=== PATIENT | male | born 1935 | race Caucasian/White ===

== ENCOUNTER 2018-03-10 14:10 | Observation (INO) | payer OTHER, MEDICARE ==
--- NOTE | 2018-03-10 14:37 | EDPHY ---
H & P Time Seen by Provider: 03/10/18 14:36 HPI/ROS: CHIEF COMPLAINT: Chest discomfort HISTORY OF PRESENT ILLNESS: 82-year-old man was significant hypercholesterolemia presents with 3 days of intermittent left-sided chest discomfort. He 1st noticed it 3 nights ago as a"low-grade pain"which lasted half an hour and then he went back to sleep. He had the same thing happened to him 2 nights ago and then again last night. At 7:00 a.m. He awoke was asymptomatic but at 9:00 a.m. Today the symptoms came on again and were stronger. Associated with shortness of breath with walking. No radiation and no nausea or vomiting. Symptoms were moderate previously but are completely gone when I see him now. REVIEW OF SYSTEMS: Eye: no change in vision ENT: no sore throat Cardiac: HPI, had some racing heart rate last a month ago but nothing in the last 4 weeks. Pulmonary: no cough or SOB Abdomen: no vomiting, diarrhea, abdominal pain Musculoskeletal: No leg swelling Skin: no rash Neuro: no headache Constitutional: no fever : no urinary symptoms A comprehensive 10 point review of systems is otherwise negative aside from elements mentioned in the history of present illness. PAST MEDICAL HISTORY: Prostate cancer, chronic left facial droop Just spent the last 18 months living in [place] and [place] as they are thinking of retiring to another country. Social history: Here with his , nonsmoker General Appearance: Alert and conversant, cooperative. Eyes: No scleral icterus. ENT, Mouth: Normal mucous membranes. Respiratory: Normal respiratory effort, breath sounds equal, lungs are clear to auscultation. Cardiovascular: Regular rate and rhythm. Gastrointestinal: Abdomen is soft and non tender. Neurological: Alert, face with very slight left facial droop, normal motor and sensory in extremities. Skin: Warm and dry, no rashes. Musculoskeletal: No peripheral edema. No calf tenderness. Psychiatric: Not agitated. Emergency Department course/MDM: At least moderate suspicion for coronary disease with chest pain and exertional dyspnea an 82-year-old man with high cholesterol. Plan for aspirin, chest x- ray and D-dimer, hospitalist admission. 1606: CT angio discussed and consented, chest pain with recent travel and D- dimer 1.44. 1636: CT negative for PE per Leon, does have approximately calcification , discussed with Dr. Perez Ammon admit for cardiac risk stratification. Oral aspirin. Smoking Status: Never smoked Constitutional: Initial Vital Signs Temperature (C) 36.4 C 03/10/18 14:13 Heart Rate 53 L 03/10/18 14:13 Respiratory Rate 18 03/10/18 14:13 Blood Pressure 162/87 H 03/10/18 14:13 O2 Sat (%) 96 03/10/18 14:13 O2 Delivery Mode Room Air Allergies/Adverse Reactions: No Known Allergies Allergy (Verified 03/10/18 14:13) Home Medications: Medication Instructions Recorded NK [No Known Home Meds] 03/10/18 Medical Decision Making - Diagnostics EKG Interpretation: 12-lead EKG interpreted by me; official reading is in computer system. My interpretation is sinus bradycardia rate 45 with no ischemic changes. Imaging Results: Imaging Impressions Chest X-Ray 03/10/18 15:00 Impression: Nothing acute identified. Suspect COPD. Chest/Thorax CTA 03/10/18 15:49 Impression: No pulmonary embolic disease. 2. Proximal LAD CAD. Results called to Dr. Milton Castro at 4:34 PM. General information for patients regarding this examination can be found at [email or web address]. If you have questions or comments about this report, please contact me at (hospital) or [phone] (cell). Differential Diagnosis: Differential diagnosis considered for chest pain including but not limited to myocardial ischemia, aortic dissection, pericarditis, pulmonary embolus, chest wall pain, pleural inflammation and pulmonary infectious causes. - Data Points Laboratory Results: Laboratory Results 03/10/18 14:30 03/10/18 14:30 03/10/18 03/10/18 03/10/18 15:46 14:30 14:30 WBC RBC Hgb Hct MCV MCH MCHC RDW Plt Count MPV Neut % (Auto) Lymph % (Auto) [place] % (Auto) Eos % (Auto) Baso % (Auto) Nucleat RBC Rel Count Absolute Neuts (auto) Absolute Lymphs (auto) Absolute Monos (auto) Absolute Eos (auto) Absolute Basos (auto) Absolute Nucleated RBC Immature Gran % Immature Gran # D-Dimer 1.44 ug/mLFEU H ug/mLFEU (0.00-0.50) Sodium 139 mEq/L mEq/L (135-145) Potassium 4.1 mEq/L mEq/L (3.3-5.0) Chloride 106 mEq/L mEq/L (97-110) Carbon Dioxide 25 mEq/l mEq/l (22-31) Anion Gap 8 mEq/L mEq/L (8-16) BUN 19 mg/dL mg/dL (7-23) Creatinine 1.0 mg/dL mg/dL (0.7-1.3) Estimated GFR > 60 Glucose 93 mg/dL mg/dL (70-100) Calcium 9.1 mg/dL mg/dL (8.5-10.4) POC Troponin I 0.01 ng/mL ng/mL (0.00-0.08) 03/10/18 14:30 WBC 6.08 10^3/uL 10^3/uL (3.80-9.50) RBC 4.99 10^6/uL 10^6/uL (4.40-6.38) Hgb 14.9 g/dL g/dL (13.7-17.5) Hct 43.6 % % (40.0-51.0) MCV 87.4 fL fL (81.5-99.8) MCH 29.9 pg pg (27.9-34.1) MCHC 34.2 g/dL g/dL (32.4-36.7) RDW 13.6 % % (11.5-15.2) Plt Count 204 10^3/uL 10^3/uL (150-400) MPV 10.0 fL fL (8.7-11.7) Neut % (Auto) 68.8 % % (39.3-74.2) Lymph % (Auto) 18.9 % % (15.0-45.0) [place] % (Auto) 8.6 % % (4.5-13.0) Eos % (Auto) 2.6 % % (0.6-7.6) Baso % (Auto) 0.8 % % (0.3-1.7) Nucleat RBC Rel Count 0.0 % % (0.0-0.2) Absolute Neuts (auto) 4.18 10^3/uL 10^3/uL (1.70-6.50) Absolute Lymphs (auto) 1.15 10^3/uL 10^3/uL (1.00-3.00) Absolute Monos (auto) 0.52 10^3/uL 10^3/uL (0.30-0.80) Absolute Eos (auto) 0.16 10^3/uL 10^3/uL (0.03-0.40) Absolute Basos (auto) 0.05 10^3/uL 10^3/uL (0.02-0.10) Absolute Nucleated RBC 0.00 10^3/uL 10^3/uL (0-0.01) Immature Gran % 0.3 % % (0.0-1.1) Immature Gran # 0.02 10^3/uL 10^3/uL (0.00-0.10) D-Dimer Sodium Potassium Chloride Carbon Dioxide Anion Gap BUN Creatinine Estimated GFR Glucose Calcium POC Troponin I Medications Given: Discontinued Medications Aspirin (Aspirin) 324 mg PO EDNOW ONE Stop: 03/10/18 15:00 Last Admin: 03/10/18 15:18 Dose: 324 mg Point of Care Test Results: Chemistry 03/10/18 15:46 POC Troponin I 0.01 ng/mL ng/mL (0.00-0.08) Departure - Departure Disposition: [facility] Inpatient Acute Clinical Impression: Chest pain Qualifiers: Chest pain type: unspecified Qualified Code(s): R07.9 - Chest pain, unspecified Condition: Good
[2018-03-10] MEDS ORDERED: ASPIRIN 81 MG CHEWABLE TAB PO ONE (14:59)
--- NOTE | 2018-03-10 15:04 | CPEKG ---
Test Reason : OPEN Blood Pressure : / mmHG Vent. Rate : 045 BPM Atrial Rate : 044 BPM P-R Int : 143 ms QRS Dur : 102 ms QT Int : 484 ms P-R-T Axes : 049 006 050 degrees QTc Int : 419 ms Sinus bradycardia Confirmed by Milton Castro ([id number]) on 03/10/2018 3:03:55 PM Referred By: Confirmed By:Milton Castro
[2018-03-10 15:17] LABS: PLATELET COUNT 204 10^3/uL (150-400)
[2018-03-10] MEDS ORDERED: IOPAMIDOL (ISOVUE 370) 100 ML BTL IV ONE (16:00)
[2018-03-10] MEDS ORDERED: ACETAMINOPHEN 325 MG TAB PO PRN (18:14)
[2018-03-10] MEDS ORDERED: ONDANSETRON DISINTEGRATING 4 MG TAB PO PRN (18:14)
[2018-03-10] MEDS ORDERED: ONDANSETRON 4 MG/2 ML VIAL IVP PRN (18:14)
--- NOTE | 2018-03-10 19:04 | GHP ---
DATE OF ADMISSION: 03/10/2018 HISTORY OF PRESENT ILLNESS: The patient is a pleasant 82-year-old gentleman with a history of 20 yea rs of untreated hyperlipidemia, who presents with several days of chest pressure. It sounds like occ urring nocturnally. It is in his chest. It does not radiate. It is not associated with nausea, ramsey phoresis, or shortness of breath. It resolves on its own. He is a fit clarisa. He is an avid walker, a nd he noticed that he is having a little bit of exertional intolerance lately, although it is not chaz ar that he is actually having exertional pain. He also describes a story of over in the last say 6 or 7 months he has had a couple of episodes where he woke up with palpitations and rapid heart rate that resolved on its own. He did not seek care. He notes he has been traveling somewhat frequently, and he has been experiencing a bit of lower extre mity edema. Regarding cardiac risk factors, his brother has a history of a stent and hyperlipidemia at a similar age as he is now. He has been a non-smoker for most of his life. He does not have high blood pressu re or diabetes, and he does have hyperlipidemia. REVIEW OF SYSTEMS: A complete 10-point review of systems conducted; negative except as noted in the HPI. PAST MEDICAL HISTORY: Inguinal hernia. ALLERGIES: No known drug allergies. HOME MEDICATIONS: None. SOCIAL HISTORY: [id number] alcohol. 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 Lots of travel. FAMILY HISTORY: As in the HPI. PHYSICAL EXAMINATION: VITAL SIGNS: Temp 36.4; blood pressure 162/87, now 134/74; pulse 53; breathin g 18 times a minute; 96% on room air. GENERAL: No acute distress. Sclerae anicteric. Oropharynx c lear. Mucous membranes moist. NECK: Supple. No lymphadenopathy or JVD. LUNGS: Clear to ausculta tion bilaterally. HEART: S1, S2. ABDOMEN: Soft, nontender, nondistended. LOWER EXTREMITIES: Wit hout edema. Calves are nontender. SKIN: Without rash. NEUROLOGIC: Nonfocal. DIAGNOSTIC STUDIES: EKG interpreted by me shows sinus bradycardia at 45 with normal axis and interva ls with no ST or T-wave changes. Chest x-ray interpreted by me shows no acute cardiopulmonary diseas e. CTA of the chest shows proximal LAD calcification, no PE. LABORATORY STUDIES: White count 6, hematocrit 44, platelets are 204,000. D-dimer is elevated at 1.4 . Sodium 139, potassium 4.1, chloride 106, bicarb 25, BUN 19, creatinine 1.0. Point of care troponi n is 0.01. I have discussed the case with Dr. Milton Castro. ASSESSMENT/PLAN: An 82-year-old gentleman who presents with likely exertional angina. 1. Angina. This is a concerning symptom, although he has a negative initial evaluation. Given his normal electrocardiogram, I think it is reasonable to do an exercise treadmill test in the morning. I have asked Cardiology to see him as well. 2. Hyperlipidemia. Check lipid panel in the morning. 3. Nocturnal palpitations. This is concerning for possible atrial fibrillation. I will go ahead an d follow him on telemetry. I think we can hold off on echocardiogram. 4. Hypertension, present on admission. We will follow. DISPOSITION: Observation status. /[id number]/MODL
[2018-03-11] MEDS ORDERED: ASPIRIN 81 MG CHEWABLE TAB PO SCH (09:00)
--- NOTE | 2018-03-11 11:52 | ASMTCASEMG ---
Living Arrangements What is your living Answers: With Spouse arrangement? Who do you live with? Type Of Residence What kind of residence do Answers: House you live in? Discharge Plan Comments Coordination Status Comments Notes: Pt is an active 82 y/o man admitted for chest pain. Pt will have a lexiscan stress test today. If the stress stress is negative pt will d/c without any needs. CM available for changes. Plan: Independent Date Signed: 03/11/2018 11:51 AM Electronically Signed By:BOWEN Aldana
--- NOTE | 2018-03-11 12:10 | CPEKG ---
Test Reason : OPEN Blood Pressure : / mmHG Vent. Rate : 039 BPM Atrial Rate : 039 BPM P-R Int : 136 ms QRS Dur : 097 ms QT Int : 510 ms P-R-T Axes : 022 040 062 degrees QTc Int : 411 ms significant sinus bradycardia Confirmed by Albin Atkins ([id number]) on 03/11/2018 12:09:30 PM Referred By: Confirmed By:Albin Atkins
[2018-03-11] MEDS ORDERED: REGADENOSON 0.4 MG/5 ML SYR IVP ONE (13:21)
--- NOTE | 2018-03-11 14:08 | CPR ---
PROCEDURE: Lexiscan Injection of Lexiscan MPI Study. SUPERVISING TRANSONIC ENGINEER: Dr. Parth Coleman. INDICATION FOR PROCEDURE: Chest pain, unable to run on treadmill. PRE: After obtaining informed consent, ensuring patient's n.p.o. status of caffeine for greater than 12 hours, patient was placed on electrocardiogram. Initial EKG shows sinus bradycardia with ventric ular rate at 42 beats per minute. Normal axis with no significant ST or T-wave abnormalities. The p atient reports no chest pain, pressure, or symptoms suggesting of ischemia. STRESS: Patient was given Lexiscan slow IV push, followed by nuclear isotope. Following injection, it was noted that his heart rate did jump up to around 87 beats per minute, remaining sinus rhythm wi th no arrhythmias, no significant ST changes. Within 5 minutes post-injection, patient did report so me mild stomach cramping and flushing sensation, but no chest pressure or pain. Within 5 minutes, milton hernandez reported all symptoms subsided, electrocardiogram remains the same unchanged, blood pressure of 132/78, heart rate of 97. IMPRESSION: 82-year-old male being evaluated for possible cardiac ischemia with noted episode of eelanor st pressure. Unable to run on a treadmill, Lexiscan MPI study done with no significant EKG changes, except rate. Vital signs are stable. He is asymptomatic at this time. He will finish poststress im aging in nuclear medicine. /[id number]/MODL
--- NOTE | 2018-03-11 14:54 | HOSPPROG ---
Hospitalist Progress Note Assessment/Plan: 82 yo M with PMH of HLD presenting with chest pain # chest pain: has had several episodes of chest pain and palpitations over the last several months, mostly waking him from sleep. He is currently cp free. CTA personally reviewed showing no PE or PNA, ECG personally reviewed notable for sinus bradycardia. Lexiscan performed today and pending but if negative will dc home to f/u with PCP and establish care with cardiology. # HLD: with LDL of 157 and patient not on meds previously, at this time will hold off on starting medications and have patient f/u with PCP # nocturnal palpitations: has occurred twice in the last several months, no significant events noted on tele, will have patient f/u with cardiology and consider holter/event monitoring # observation status Patient new to my care. Old records reviewed and summarized as above. Subjective: no significant overnight events, patient currently feeling better without pain Objective: Vital Signs Temp Pulse Resp BP Pulse Ox 36.5 C 48 L 16 131/80 H 95 03/11/18 11:22 03/11/18 11:22 03/11/18 11:22 03/11/18 11:22 03/11/18 11:22 03/10/18 03/11/18 03/12/18 05:59 05:59 05:59 Intake Total 300 Balance 300 awake alert anicteric op clear rrr no mrg cta b soft nt nd no cce warm dry well perfused oriented appropriate ICD10 Worksheet Patient Problems: Problems Problem Status Onset Chest pain Acute
[2018-03-11 16:17] VITALS: BP 143/76
== END 2018-03-11 17:49 | disposition home or self-care (01) ==
LOC: F2W 18:20
PROVIDERS: ADMIT Internal Medicine; ATTEND Internal Medicine
DX: R07.89 Other chest pain (principal); R00.2 Palpitations; E78.00 Pure hypercholesterolemia, unspecified; R29.810 Facial weakness; I10 Essential (primary) hypertension; Z85.46 Personal history of malignant neoplasm of prostate
CPT/HCPCS: 71046; 71275; 78452; 93005; 93017; 99285; A9500; G0378; J2785; Q9967; 84484-PO

== ENCOUNTER → 2018-03-16 | Outpatient (CLI) | payer OTHER, MEDICARE | LOC: FIMAGING 09:10 | PROVIDERS: ATTEND Family Medicine | DX: M48.061 Spinal stenosis, lumbar region without neurogenic claudication (principal); M48.07 Spinal stenosis, lumbosacral region; M51.36 Other intervertebral disc degeneration, lumbar region; M46.97 Unspecified inflammatory spondylopathy, lumbosacral region ==

== ENCOUNTER → 2018-04-12 | Outpatient (CLI) | payer OTHER, MEDICARE | LOC: BHFA 09:15 | PROVIDERS: ATTEND Internal Medicine Cardiovascular Disease | DX: R07.9 Chest pain, unspecified (principal) ==

== ENCOUNTER 2018-04-22 11:57 | Observation (INO) | payer OTHER, MEDICARE ==
[2018-04-22] MEDS ORDERED: LR 1,000 ML IV ONE (12:42)
[2018-04-22] MEDS ORDERED: SURGIFLO MATRIX KIT WITH THROMBIN 8 ML TP ONE (14:43)
[2018-04-22] MEDS ORDERED: BUPIVACAINE/EPI 0.5% 30 ML SDV ONE (14:43)
[2018-04-22] MEDS ORDERED: VANCOMYCIN 1 GM VIAL ONE (14:43)
[2018-04-22] MEDS ORDERED: BACITRACIN 50,000 UNITS/10 ML SYR IRR ONE (14:44)
--- NOTE | 2018-04-22 14:47 | PDANEPAE ---
ANE Past Medical History - Cardiovascular History Hx Hypertension: No Hx Arrhythmias: No Hx Chest Pain: No Hx Coronary Artery / Peripheral Vascular Disease: No Hx CHF / Valvular Disease: No Hx Palpitations: Yes Cardiovascular History Comment: SINUS BRADYCARDIA. NOCTURNAL PALPITATIONS - Pulmonary History Hx COPD: No Hx Asthma/Reactive Airway Disease: No Hx Recent Upper Respiratory Infection: No Hx Oxygen in Use at Home: No Hx Sleep Apnea: No Sleep Apnea Screening Result - Last Documented: Negative - Neurologic History Hx Cerebrovascular Accident: No Hx Seizures: No Hx Dementia: No - Endocrine History Hx Diabetes: No Hypothyroid: No Hyperthyroid: No Obesity: no - Renal History Hx Renal Disorders: Yes Renal History Comment: HX OF STONES. UTI 01/2018. NOCTURIA/BPH - Liver History Hx Hepatic Disorders: No - Neurological & Psychiatric Hx Hx Neurological and Psychiatric Disorders: No - Cancer History Hx Cancer: Yes Cancer History Comment: PROSTATE CA BEING MONITORED - Congenital Disorder History Hx Congenital Disorders: No - GI History GERD: no Hx Gastrointestinal Disorders: No - Other Health History Other Health History: SPINAL STENOSIS. MADDISON LEG WEAKNESS RT BEING WEAKER. GLAUCOMA RT EYE - Chronic Pain History Chronic Pain: Yes (MADDISON LOWER LUMBAR AND LEG WEAKNESS) - Surgical History Prior Surgeries: MADDISON ING HERNIA. MADDISON CATARACT. TONSILLECTOMY. LITHOTRIPSY. CYSTO ANE Review of Systems Review of Systems: - Exercise capacity Exercise capacity: >=4 METS METS (RN): 4 METS ANE Patient History - Allergies Allergies/Adverse Reactions: No Known Allergies Allergy (Verified 03/10/18 14:13) - Home Medications Home Medications: Ascorbic Acid [Vitamin C 500 mg (*)] 500 mg PO DAILY 04/13/18 [Last Taken Unknown] acetaZOLAMIDE [Diamox Sequel 500mg] 500 mg PO BID 04/21/18 [Last Taken Unknown] - NPO status NPO Since - Solids (Date): 04/21/18 NPO Since - Solids (Time): 20:30 - Anes Hx Anes Hx: no prior problems - Smoking Hx Smoking Status: Former smoker Marijuana use: No - Alcohol Use Alcohol Use: Rarely - Family Anes Hx Family Anes Hx: neg - N/A ANE Labs/Vital Signs - Vital Signs Blood Pressure: 128/74 Heart Rate: 48 Respiratory Rate: 18 O2 Sat (%): 96 Height: 181.61 cm Weight: 79.379 kg ANE Physical Exam - Airway Neck exam: decreased ROM Mallampati Score: Class 3 Mouth exam: normal dental/mouth exam - Pulmonary Pulmonary: no respiratory distress, no rales or rhonchi, clear to auscultation - Cardiovascular Cardiovascular: no murmur, rub, or gallop, bradycardia - ASA Status ASA Status: II ANE Anesthesia Plan Anesthesia Plan: general endotracheal anesthesia Total IV Anesthesia: No
[2018-04-22] MEDS ORDERED: ceFAZolin 2 GM/DEXTROSE 100 ML IV ONE (15:18)
--- NOTE | 2018-04-22 15:20 | PDHPUP ---
History & Physical Update H&P update statement: This history and physical update is based on an assessment of the patient which was completed after admission or registration (within 24 hours), but prior to the surgery/procedure. H&P update: H&P reviewed & patient examined, no change in patient's condition since H&P completed
[2018-04-22] MEDS ORDERED: TRANEXAMIC ACID 1,000 MG in NS 100 ML IV ONE (15:26)
[2018-04-22] MEDS ORDERED: fentaNYL 100 MCG/2 ML INJ ONE ×2 (15:40→18:08)
[2018-04-22] MEDS ORDERED: REMIFENTANIL HCL 1 MG VIAL ONE (15:42)
[2018-04-22] MEDS ORDERED: PROPOFOL/EMULSION 500 MG/50 ML BOTTLE IV ONE (15:42)
[2018-04-22] MEDS ORDERED: ONDANSETRON 4 MG/2 ML VIAL ONE (15:43)
[2018-04-22] MEDS ORDERED: ROCURONIUM 50 MG/5 ML VIAL ONE (15:43)
[2018-04-22] MEDS ORDERED: LIDOCAINE 2% 2 ML INJ ONE (15:44)
[2018-04-22] MEDS ORDERED: DEXAMETHASONE 4 MG/ML VIAL ONE (15:44)
[2018-04-22] MEDS ORDERED: ePHEDrine SULFATE 25 MG/5 ML SYR ONE (16:13)
[2018-04-22] MEDS ORDERED: SUGAMMADEX SODIUM 200 MG/2 ML VIAL IVP ONE (16:32)
[2018-04-22] MEDS ORDERED: fentaNYL 100 MCG/2 ML INJ IVP PRN (16:52)
[2018-04-22] MEDS ORDERED: NALOXONE HCL 0.4 MG/ML INJ IVP PRN (16:52)
[2018-04-22] MEDS ORDERED: LR 500 ML IV PRN (16:52)
[2018-04-22] MEDS ORDERED: oxyCODONE IR 5 MG TAB PO PRN ×2 (16:52→18:25)
[2018-04-22] MEDS ORDERED: DIAZEPAM 5 MG/ML 1 ML SYR IVP PRN (16:52)
[2018-04-22] MEDS ORDERED: ONDANSETRON 4 MG/2 ML VIAL IVP PRN ×2 (16:52→18:25)
[2018-04-22] MEDS ORDERED: ACETAMINOPHEN 500 MG TAB PO PRN (16:52)
[2018-04-22] MEDS ORDERED: HYDROCODONE/APAP 5/325 TAB PO PRN (16:52)
[2018-04-22] MEDS ORDERED: PROMETHAZINE HCL 25 MG/ML INJ IVP PRN (16:52)
[2018-04-22] MEDS ORDERED: HYDROmorphONE/DILAUDID 2 MG/ML INJ IVP PRN (16:52)
[2018-04-22] MEDS ORDERED: PHENYLEPHRINE HCL 100 MCG/ML SYR IVP PRN (16:52)
[2018-04-22] MEDS ORDERED: KETOROLAC 30 MG/1 ML SDV ONE (17:36)
[2018-04-22] MEDS ORDERED: METHOCARBAMOL 750 MG TAB PO PRN (18:25)
[2018-04-22] MEDS ORDERED: POLYETHYLENE GLYCOL 3350 17 GM PKT PO PRN (18:25)
[2018-04-22] MEDS ORDERED: ONDANSETRON DISINTEGRATING 4 MG TAB PO PRN (18:25)
[2018-04-22] MEDS ORDERED: diphenhydrAMINE 25 MG CAP PO PRN (18:25)
[2018-04-22] MEDS ORDERED: MAGNESIUM HYDROXIDE 30 ML UDCUP PO PRN (18:25)
[2018-04-22] MEDS ORDERED: HYDROmorphONE/DILAUDID 1 MG/ML INJ IVP PRN (18:25)
[2018-04-22] MEDS ORDERED: LACTULOSE 20 GM/30 ML UDCUP PO PRN (18:25)
[2018-04-22] MEDS ORDERED: BISACODYL 10 MG SUPP PR PRN (18:25)
--- NOTE | 2018-04-22 18:34 | SUROPNOTE ---
[facility] Operative Report - Surgery Date: 04/22/18 Pre-operative Diagnosis: Lumbar Spinal Stenosis Post-operative Diagnosis: Same Procedure: L3-5 Open Lumbar Laminectomy and Decompression Use of intra-operative fluoroscopy Use of a surgical microscope Surgeon: Josafat Bishop MD Supply Aide: Miley Zuleta Anesthesia: General endotracheal anesthesia Findings: As expected lumbar spinal stenosis Estimated Blood Loss: 100mL Drains: Hemovac sewn to skin Specimens: None Complications: None Condition: Transferred to PACU in stable condition. Implants: None Indications: This patient was seen and examined by me and diagnosed with lumbar spinal stenosis. I have explained all options of treatment for the patient, and the patient has elected to proceed with operative management. I have explained all risks, benefits, and alternatives of the proposed procedure. The risks that we have discussed include , blindness, nerve damage, infection, dural tear, failure of surgery to alleviate pre-operative symptoms, and possible need for further operation. In addition to the aforementioned procedure, I discussed with the patient that other procedures may be indicated during the course of surgery that would be considered in the patients best interest. The patient expressed understanding of this. Pre-operative: The proposed incision site was marked in the pre-operative holding area by me. The patient was then taken to the operating room in stable condition. Following smooth induction of general anesthesia, the patient was positioned prone on a Reinaldo table in mild reverse Trendelenburg with all down surfaces well-padded. The patient was then prepped and draped in the usual sterile fashion. Pre- operative antibiotics were administered within one hour of the incision. A surgical timeout was performed, and all parties involved in the procedure were in agreement on the correct patient, location, and procedure to be performed. Approach: The proposed levels were identified using C-arm fluoroscopy and the skin was marked for the proposed incision. The skin was then incised sharply through the dermis. Electrocautery was used to dissect the subdermal fat layer down to fascia and to coagulate bleeding vessels. Secondary pause: Two Valentín clamps were then placed on the spinous processes at both ends of the dissection. A lateral radiograph to identify the associated anatomy, and a small piece of bone from the associated spinous processes was removed for identification. A secondary spinal pause was then performed, and the level was confirmed with all parties participating in the operation. Decompression: All paraspinal muscles were dissected sub-periostally from the spinous processes and laminae. The dissection was then carried out to include the extent of decompression that was determined before surgery, with care being taken to preserve all facet capsules. The lateral pars was identified for all levels to be included in the proposed decompression. Using a combination of rongeur, lennox, and Kerrison rongeurs, the spinous processes and laminae were removed at all levels to the subarticular lateral recess. Care was taken to leave a minimum of 8mm of bone from the lateral border of the pars at each decompressed level. The ligamentum flavum was resected at all levels. Additional care was taken to adequately decompress the lateral recess at all levels. At the cephalad and caudal vertebrae of the extent of the decompression , approximately 50% of the lamina was removed; at the remaining levels, a complete laminectomy was performed. At this time, a ball probe was used to probe all foraminae at the affected levels. Where necessary, a small Kerrison rongeur was used to decompress remaining bone and soft tissue so that all nerve roots would traverse freely through the foraminae. In total, the entire laminae of L4 and L5 were removed, the caudal half of L3 was removed. Closure: The surgical field was then copiously irrigated with sterile saline. Vancomycin powder was then applied to the surgical field. A small drain was placed deep to the fascia and brought out of the skin superior and laterally. The drain was then sewn to skin. #1 braided and absorbable interrupted sutures were used to repair the fascia. Then 2-0 monofilament interrupted sutures were used to repair the dermal layer, and a separate 3-0 monofilament suture was used to repair the subcutaneous layer in a running fashion. All sutures used were absorbable. Topical adhesive was then applied to the skin and allowed to dry. A sterile island dressing was applied over the surgical incision. A surgical count was performed before initiation of closure and following the procedure, and all were correct. I was present for all critical portions of the procedure. Neuromonitoring: SSEP, MEP and EMG were used throughout the case from incision until the beginning of closure. There were no significant changes throughout the case, and SSEP signals were at their pre-surgical baseline levels before surgical closure was initiated. Surgical microscope use: A surgical microscope was utilized throughout the decompressive portion of this case. This was deemed necessary for safe and accurate surgical decompression of affected nerve roots. speech language assistant: A director surgical was used throughout the case, and deemed necessary for safe neural retraction, hemostasis, and suction. Recovery: The patient was extubated uneventfully in the operating room. The patient was taken to the recovery room in stable condition. Sequential compression devices for VTE prophylaxis were applied to the patients lower extremities, and were ordered to be used while the patient was non-ambulatory. Chemical VTE prophylaxis was considered to be contraindicated for this patient because of the risk of bleeding near the epidural space. Ishan Bishop MD
--- NOTE | 2018-04-22 18:57 | POSTANESTH ---
Post Anesthetic Evaluation Cardiovascular Status: Normal, Stable Respiratory Status: Normal, Stable Level of Consciousness/Mental Status: Can Participate in Eval Pain Control: Adequate, Prn Tx Ordered Nausea/Vomiting Control: Adequate, Prn Tx Ordered Complications Possibly Related to Anesthesia: None Noted
[2018-04-22] MEDS: FAMOTIDINE 20 MG TAB PO SCH (21:24)
[2018-04-22] MEDS: SENNOSIDES/DOCUSATE SODIUM TAB PO SCH (21:24)
[2018-04-23] MEDS ORDERED: TAMSULOSIN HCL 0.4 MG CAP PO ONE (08:15)
[2018-04-23] MEDS: SENNOSIDES/DOCUSATE SODIUM TAB PO SCH (09:05)
[2018-04-23] MEDS: FAMOTIDINE 20 MG TAB PO SCH (09:05)
[2018-04-23 11:36] VITALS: BP 133/65
--- NOTE | 2018-04-23 14:42 | PDIAF ---
- Diagnosis Code Status: Full Code - Medication Management Discharge Medications: electronically signed and located in the Home Medication List. - Orders Services needed: Home Care, Physical Therapy Home Care Face to Face: I certify that this patient was under my care and that I had the required [id number] encounter meeting the encounter requirements on the discharge day. My findings support the fact that the patient is homebound as defined in Home Care Face to Face Continued: CMS Chapter 7 Medicare Benefits Manual 30.1.1 , The condition of the patient is such that there exists a normal inability to leave home and consequently, leaving home would require a considerable and taxing effort. Diet Recommendation: no restrictions on diet Diet Texture: Regular Texture Diet Additional Instructions: Per MD Bishop (Telephone order read back) Patient to Discharge with Indwelling Urinary Catheter. Patient is a current patient of Dr. Israel and is to make an appointment with their office regarding catheter removal and follow up for urinary retention. - Follow Up Care Current Providers and Referrals: Olaf Mckeon DO [Primary Care Provider] - Josafat Bishop MD [Medical Doctor] -
--- NOTE | 2018-04-23 16:33 | ASMTLACE ---
LACE Length of stay for Answers: 2 days current admission Comorbidities - select Answers: Any tumor (including all that apply lymphoma or leukemia) Opioid dependence / Chronic pain Other Notes: HTN; Cervical stenosis # of Emergency department Answers: 1-2 visits in the last 6 months Score: 10 Date Signed: 04/23/2018 04:32 PM Electronically Signed By:IMMANUEL Marie
--- NOTE | 2018-04-23 16:37 | ASMTCMCOM ---
CM Note CM Note Notes: Pt had planned surgery for spinal stenosis. OT rec HHC/SNF, PT rec HHC/24 hr supervision/SNF. Spoke with pt and about d/c: Pt declines SNF consideration. Pt is able to provide 24/hr supervision and they are agreeable to HHC, [facility] can accept. Orders to be obtained via [employer]. Pt address/phone verified. Date Signed: 04/23/2018 04:37 PM Electronically Signed By:IMMANUEL Marie
--- NOTE | 2018-04-23 17:32 | ASDISCHSUM ---
Discharge Information Plan Status:Home with Home Health Medically Cleared to Leave: Discharge Date:04/23/2018 02:59 PM CM D/C Disposition:Home Health Service ADT D/C Disposition:Home Health Service Projected Discharge Date:04/23/2018 11:00 AM Transportation at D/C:Family Discharge Delay Reason: Follow-Up Date:04/23/2018 11:00 AM Discharge Slot: Final Diagnosis: Placement Information Referral Type:*Home Health Care Services Referral ID:[id number] Provider Name:[facility] Address 1:[address] Address 2: City:[place] Selection Factors: State:[place] Patient Contact Information Contact Name:TOLU Relationship: Address:[address] Work Phone: City:[place] Alternate Phone: State/Zip Code:[place] [address] Email: Financial Information Financial Class:Medicare Primary Plan Desc:MEDICARE OUTPATIENT Primary Plan Number:[id number] Secondary Plan Desc:[employer]/MDR SUPPLEMENT Secondary Plan Number:[id number] Assessment Information LACE LACE Length of stay for Answers: 2 days current admission Comorbidities - select Answers: Any tumor (including all that apply lymphoma or leukemia) Opioid dependence / Chronic pain Other Notes: HTN; Cervical stenosis # of Emergency department Answers: 1-2 visits in the last 6 months Score: 10 Date Signed: 04/23/2018 04:32 PM Electronically Signed By:IMMANUEL Marie [facility] CM Progress Note CM Note CM Note Notes: Pt had planned surgery for spinal stenosis. OT rec HHC/SNF, PT rec HHC/24 hr supervision/SNF. Spoke with pt and about d/c: Pt declines SNF consideration. Pt is able to provide 24/hr supervision and they are agreeable to [facility], [facility] can accept. Orders to be obtained via [employer]. Pt address/phone verified. Date Signed: 04/23/2018 04:37 PM Electronically Signed By:IMMANUEL Marie Intervention Information
--- NOTE | 2018-04-23 17:40 | GDS ---
On 04/22, the patient underwent an uneventful L3-L5 lumbar decompression. He did well following the operation. He progressed with physical therapy and was cleared for discharge home. Of note, he did have a bit of urinary retention postop and was given some Flomax. The patient is not to bend, lift, or twist over the next 6 weeks. He is to keep the incision dry. H e is allowed to shower and remove the dressing 1 day after leaving the hospital. The patient has a f ull presurgical booklet which answers all of his remaining questions. He is more than welcome to [facility] [facility] phone if any issues arise in the interim. /[id number]/MODL
--- NOTE | 2018-04-23 18:20 | GPROG ---
SUBJECTIVE: I saw the patient on my morning rounds today. Overall, he is doing quite well. He is a ble to ambulate. He did not void and required straight catheterization overnight. OBJECTIVE: He has no sensory, motor, or vascular deficits. Both legs appear to be neurologically in tact. Dressing is clean, dry, and intact and left in place, and the drain has a moderate amount of o utput. ASSESSMENT: Postoperative day 1 status post L3-L5 decompression. PLAN: We will discharge the patient home today as long as he is able to urinate. We will give him a total of 3 trials to void. After the third failure, we will leave in a Posadas catheter and consider discharge with a leg bag. We will give him Flomax q.h.s., and we will give him a dose now. I will b e in touch with his nurse caring for him to see if he urinates later in the day. /[id number]/MODL
[2018-04-23] MEDS ORDERED: TAMSULOSIN HCL 0.4 MG CAP PO SCH (21:00)
== END 2018-04-23 14:59 | disposition home health service (06) ==
LOC: F3N 12:21
PROVIDERS: ADMIT Orthopaedic Surgery Orthopaedic Surgery of the Spine; ATTEND Orthopaedic Surgery Orthopaedic Surgery of the Spine
PROC: BR19YZZ Fluoroscopy of Lumbar Spine using Other Contrast (ICD-10-PCS; principal; 2018-04-22 15:45)
PROC: 0SB00ZZ Excision of Lumbar Vertebral Joint, Open Approach (ICD-10-PCS; principal; 2018-04-22 15:45)
PROC: 00NY0ZZ Release Lumbar Spinal Cord, Open Approach (ICD-10-PCS; principal; 2018-04-22 15:45)
PROC: 4A1034G Monitoring of Central Nervous Electrical Activity, Intraoperative, Percutaneous Approach (ICD-10-PCS; principal; 2018-04-22 15:45)
PROC: 0T9B70Z Drainage of Bladder with Drainage Device, Via Natural or Artificial Opening (ICD-10-PCS; 2018-04-23)
DX: M48.062 Spinal stenosis, lumbar region with neurogenic claudication (principal); R33.9 Retention of urine, unspecified; M43.16 Spondylolisthesis, lumbar region; M54.5 Low back pain; N40.1 Benign prostatic hyperplasia with lower urinary tract symptoms; Z87.440 Personal history of urinary (tract) infections; Z87.442 Personal history of urinary calculi; Z87.891 Personal history of nicotine dependence
CPT/HCPCS: 51702; 63047; 63048; 76001; 97161; 97166; 97530; 97535; G8978; G8979; G8987; G8988; G8989; J0690; J1100; J1885; J2405; J2704; J3010; J3370